=== PATIENT | male | born 1995 | race Caucasian/White ===

== ENCOUNTER 2018-09-23 16:42 | Emergency (ER) | payer OTHER ==
[~2018-09-23] VITALS: Ht 170.2 cm; Wt 73.5 kg
== END 2018-09-23 20:38 | disposition home or self-care (01) ==
LOC: ER 16:42
DX: B08.8 Other specified viral infections characterized by skin and mucous membrane lesions (principal)

== ENCOUNTER 2019-03-25 01:10 | Emergency (ER) | payer OTHER ==
[~2019-03-25] VITALS: Ht 170.2 cm; Wt 74.8 kg
[2019-03-25] MEDS ORDERED: LEVSIN/SL0.125 MG SL (06:00)
[2019-03-25] MEDS ORDERED: INTESTINEX680 M1 PO (06:00)
== END 2019-03-25 06:09 | disposition home or self-care (01) ==
LOC: ER 01:10
DX: K52.9 Noninfective gastroenteritis and colitis, unspecified (principal)

== ENCOUNTER 2019-09-24 22:35 | Emergency (ER) | payer OTHER ==
[~2019-09-24] VITALS: Ht 170.2 cm; Wt 72.6 kg
[~2019-09-24 22:35] MED LIST: INTESTINEX680 M1 PO; LEVSIN/SL0.125 MG SL
== END 2019-09-25 00:29 | disposition home or self-care (01) ==
LOC: ER 22:35
DX: M94.0 Chondrocostal junction syndrome [Tietze] (principal)

== ENCOUNTER 2020-05-07 01:16 | Emergency (ER) | payer OTHER ==
[~2020-05-07] VITALS: Ht 170.2 cm; Wt 76.2 kg
== END 2020-05-07 04:30 | disposition home or self-care (01) ==
LOC: ER 01:16
DX: R50.9 Fever, unspecified (principal); Z03.818 Encounter for observation for suspected exposure to other biological agents ruled out

== ENCOUNTER 2020-05-12 18:10 | Inpatient (IN) | payer OTHER ==
[~2020-05-12] VITALS: Ht 170.2 cm; Wt 77.1 kg
--- NOTE | 2020-05-12 18:23 | NUR ---
SE RECIBE PTE ALERTA Y ORIENTADO X3,REFIERE TENR DIARREAS ,RASH EN EL CUERPO,DOLOR DE GARGANTA DESE EL SABADO.
--- NOTE | 2020-05-12 18:41 | NUR ---
MS SUSANNAH ORIENTA PTE SOBRE TX MEDICO EL CUAL REFIERE ENTENDER.SE LE EXTRAEN MUESTRAS BAJO MEDIDAS ASEPTICAS,SE CANALIZA Y SE ADMINISTRAN MEDICAMENTO ANNIE ORDEN MEDICA.
--- NOTE | 2020-05-13 07:28 | NUR ---
SE RECIBE PTE EL CUAL SE ENCUENTRA EN CAMA CON BARANDAS ELEVADAS, EL MISMO PRESENTA AREA DE VENOPUNCION PATENTE Y MARÍA DE EDEMA Y ENROJECIMIENTO CON 0.9NSS AT 250ML/HR Y CONSULTA CON DR. ELIZABETH KIRKPATRICK
== END 2020-05-15 13:40 | disposition home or self-care (01) | DRG 866 ==
LOC: ER 18:10 → MEDI 05-13 08:46
PROVIDERS: ADMIT Internal Medicine; ATTEND Internal Medicine
DX: A90 Dengue fever [classical dengue] (principal); D69.6 Thrombocytopenia, unspecified; R19.7 Diarrhea, unspecified

== ENCOUNTER 2020-07-24 20:49 | Emergency (ER) | payer OTHER ==
[~2020-07-24] VITALS: Ht 170.2 cm; Wt 72.6 kg
[2020-07-26] MEDS ORDERED: ULTRACET PO (15:36)
[2020-07-26] MEDS ORDERED: CANASA1000 MG RECTAL (15:37)
== END 2020-07-25 00:12 | disposition home or self-care (01) ==
LOC: ER 20:49
DX: K64.8 Other hemorrhoids (principal)

== ENCOUNTER 2020-07-26 07:00 | Day surgery (SDC) | payer OTHER ==
[~2020-07-26] VITALS: Ht 170.2 cm; Wt 72.6 kg
[2020-07-26] MEDS ORDERED: ULTRACET PO (15:36)
[2020-07-26] MEDS ORDERED: CANASA1000 MG RECTAL (15:37)
== END 2020-07-26 13:00 | disposition home or self-care (01) ==
LOC: CIR.AMB 07:00 → ER 09:20 → SEC-K 09:20 → O/R 09:20 → EDSTATUS 10:00 → O/R 11:20 → SEC-K 11:20 → CIR.AMB 13:00 → O/R 19:35
PROVIDERS: ATTEND General Practice
DX: K62.89 Other specified diseases of anus and rectum (principal)

== ENCOUNTER 2021-01-24 06:05 | Day surgery (SDC) | payer OTHER ==
[~2021-01-24 06:05] MED LIST changes: +CANASA1000 MG RECTAL; +ULTRACET PO
== END 2021-01-24 15:00 | disposition home or self-care (01) ==
LOC: CIR.AMB 06:05
PROVIDERS: ATTEND Urology
DX: I86.1 Scrotal varices (principal); Z20.822 Contact with and (suspected) exposure to COVID-19

== ENCOUNTER 2022-05-04 09:02 | Emergency (ER) | payer OTHER ==
[~2022-05-04] VITALS: Ht 170.2 cm; Wt 70.3 kg
== END 2022-05-04 12:01 | disposition home or self-care (01) ==
LOC: ER 09:02
DX: B34.9 Viral infection, unspecified (principal); R53.81 Other malaise

== ENCOUNTER 2024-06-13 09:58 | Emergency (ER) | payer OTHER ==
[~2024-06-13] VITALS: Ht 170.2 cm; Wt 72.6 kg
[2024-06-13 11:41] LABS: HEMATOCRIT 40.1 % (39.0-48.0); HEMOGLOBIN 13.8 g/dL (13-16.00); MEAN CELL VOLUME 90.6 fL (80.0-100.00); MEAN CORPUSCULAR HEMOGLOBIN 31.3 pg (27.00-32.0); MEAN CORPUSCULAR HGB CONC 34.5 g/dl (32.0-36.0); PLATELET COUNT 195 K/uL (150-450); RED BLOOD COUNT 4.43 M/uL (4.00-6.00); RED CELL DISTRIBUTION WIDTH 14.6 % (11.5-14.5)
== END 2024-06-13 12:49 | disposition home or self-care (01) ==
LOC: ER 09:59
DX: B34.9 Viral infection, unspecified (principal); Z20.822 Contact with and (suspected) exposure to COVID-19